=== PATIENT | female | born 1980 | race Caucasian/White ===

== ENCOUNTER 2017-06-10 20:29 | Day surgery (SDC) | payer OTHER ==
[~2017-06-10] VITALS: Ht 152.4 cm; Wt 94.3 kg
--- NOTE | ~2017-06-10 | OR ---
PATIENT'S NAME: ISABEL MONK [facility] AGE: 36 Y [address] ROOM: [place] [address] [place] [facility] [place] DATE: 06/10/2017 OR/Procedure Report DISCHARGE DATE: FAMILY PHYSICIAN: Brad Perea MD ATTENDING PHYSICIAN: Suleman Sorensen SURGEON: Suleman Sorensen MD LEARNING DISABILITIES RESOURCE TEACHER: DATE OF PROCEDURE: 06/10/2017 PREOPERATIVE DIAGNOSIS: Acute abdominal pain, possible appendicitis. POSTOPERATIVE DIAGNOSIS: Ruptured ovarian cyst. PROCEDURES PERFORMED: 1. Laparoscopic appendectomy. 2. Excision of ovarian cyst wall. FINDINGS: On entering the abdomen, there was blood in the abdomen. A ruptured ovarian cyst was encountered that was adherent to the right lower quadrant. This was felt to be her pain, but with the appendix being generous and this potentially causing a future diagnostic dilemma, appendix was also excised. ESTIMATED BLOOD LOSS: 75 mL. COMPLICATIONS: None. INDICATIONS: The patient is a 36-year-old female who presented with right lower quadrant pain worsening in nature. She had focal pain and signs concerning for appendicitis. She had a CT scan that revealed a dilated appendix with possible early appendicitis. We discussed observation versus exploration and appendectomy with the patient; the risks, benefits, and alternatives; potential findings; and she wished to proceed. DESCRIPTION OF PROCEDURE: The patient was taken into the operating room. She was supine given IV sedation. Her abdomen was prepped with ChloraPrep and sterilely draped. Local anesthetic was infiltrated just inferior to the umbilicus. A transverse incision was created. The abdomen was elevated. A Veress needle was inserted. Pneumoperitoneum was induced. Following this, a 5 mm trocar was inserted followed by insertion of the camera. There was no injury from initial trocar placement. There was noted to be hemorrhagic fluid in the pelvis and right lower quadrant. Two more trocars were positioned, a 5 mm suprapubic and a 12 mm left lower quadrant port. Skin overlying the peritoneum was first anesthetized prior to making these incisions. Both of these trocars were inserted under direct visualization. The right lower PATIENT'S NAME: ISABEL MONK [facility] AGE: 36 Y [address] ROOM: [place] [address] LOCATION: [facility] [place] DATE: 06/10/2017 OR/Procedure Report DISCHARGE DATE: FAMILY PHYSICIAN: Brad Perea MD ATTENDING PHYSICIAN: Suleman Sorensen quadrant was attended to, a ruptured ovarian cyst was present. This was adherent in the right lower quadrant. There was hematoma surrounding this with a small amount of bleeding present. This was felt to be the source of her pain. The cyst wall was excised to control bleeding, this was sent for pathologic evaluation. We turned our attention to the appendix. As by CT scan, this was mildly dilated. The appendix was generous, however, no gross signs of appendicitis were present; but with the slight abnormality by CT scan and concerns for future diagnostic dilemmas, we ultimately elected to remove the appendix. A window was created at the base of the appendix. A laparoscopic stapler was placed, fired across the base of the appendix. A second staple load was placed across the mesoappendix and fired. The appendix was placed in an EndoCatch bag. The bag brought out through the left lower quadrant port site. The operative field was then inspected, it was copiously irrigated. Hemostasis was checked and had been obtained. A laparoscopic suture passer was placed to close the 12 mm trocar site. The pneumoperitoneum was released. The trocars were all removed. The skin edges of all the trocar sites were closed with 4-0 Monocryl suture. Steri-Strips and sterile dressings were placed. The patient was extubated and sent to recovery in good condition. SULEMAN SORENSEN MD BJO/modl /[id number] d: 06/11/17 0200 t: 06/19/17 0857, OPERATIVE SUMMARY
--- NOTE | ~2017-06-10 | HP ---
PATIENT'S NAME: YASEMIN MONK [facility] AGE: 36 Y [address] ROOM: [place] [address] [place] [facility] [place] DATE: 06/10/2017 History & Physical DISCHARGE DATE: FAMILY PHYSICIAN: Brad Perea MD ATTENDING PHYSICIAN: Suleman Sorensen DATE OF SERVICE: CHIEF COMPLAINT: Abdominal pain. HISTORY OF PRESENT ILLNESS: The patient is a 36-year-old female who was awoke in the middle of the night with abdominal pain. She described this in the right lower quadrant. She said she had difficulty sleeping after that. Said that whenever she would roll over, her right side would hurt. She had been anorexic all day. Had tried to eat a little bit, but just was not hungry. She had no nausea or vomiting. She did have a bout of loose stool. Her pain continued to persist, was worse when moving, best when lying still. She described pain on the bumps while driving to the hospital for her CT scan. She was evaluated by Dr. Lelo Beyer today and there were concerns with peritoneal signs and appendicitis. Because of that, a CT was performed. CT revealed mildly dilated appendix, this was fluid filled, minimal inflammatory changes surrounding this, although the wall was slightly thickened, could represent early appendicitis. Because of her severe pain in the right lower quadrant, I was asked to see the patient. The patient states that she has never had pain similar to this in the past. She has had no previous ovarian cysts. No significant history of constipation or colitis. CURRENT MEDICATIONS: An antidepressant. ALLERGIES: BACTRIM. SOCIAL HISTORY: Nonsmoker. Has 2 children. PREVIOUS SURGERIES: Cholecystectomy, left elbow, and section x2. REVIEW OF SYSTEMS: She is currently having a headache, but does not typically have headaches, although she said she did not even feel like drinking caffeine today and normally she drinks a significant amount. Denies any asthma. No shortness of PATIENT'S NAME: YASEMIN MONK [facility] AGE: 36 Y [address] ROOM: [place] [address] LOCATION: [facility] [place] DATE: 06/10/2017 History & Physical DISCHARGE DATE: FAMILY PHYSICIAN: Brad Perea MD ATTENDING PHYSICIAN: Suleman Sorensen breath. No chest pain. No melena or hematochezia. No hematuria or dysuria. No history of kidney stones. PHYSICAL EXAMINATION: HEENT: Head is normocephalic and atraumatic. Eyes are anicteric. NECK: Without lymphadenopathy. HEART: Regular rate and rhythm. No murmurs audible. LUNGS: Clear to auscultation bilaterally. ABDOMEN: Obese. She does have point tenderness in the right lower quadrant, demonstrates voluntary guarding. Rovsing sign is positive. EXTREMITIES: Straight leg sign is also positive. Extremities are warm. No edema. ASSESSMENT: Right lower quadrant pain. PLAN: Discussed the findings with Yasemin. No hydroureter was visualized or evidence of kidney stone. She has noticed no hematuria. No history of kidney stones and this was not colicky pain. Her pain has been persistent and getting worse in the right lower quadrant. Despite having minimal CT findings, I did offer her surgical intervention. We discussed observation and antibiotic therapy as well. We discussed risks of each of these. Risks of surgery, which include bleeding, infection, abscess formation, and staple line leak. We also discussed the possibility of having a normal appendix. At this point in time with severity of her pain, she does not wish to wait longer, and clinically she is worse than her CT scan would suggest. I did discuss with her the possibility of no improvement even after surgery and then further diagnosis would have to be made. MD DALTON MAYO/shimon /[id number] D: T: [id number] HISTORY & PHYSICAL
--- NOTE | 2017-06-11 03:45 | NUR ---
ADMISSION: POST-OP APPY AND RUPTURED OVARIAN CYST REMOVAL. Q4 VITALS, STABLE. NORCO OR PERCOCET Q4H FOR PAIN, LAST GIVEN PERCOCET @ 2343 AND NORCO AT 0400. 3 LAP SITES, MID LOWER ABD, MID UPPER ABD AND L) LOWER ABD. C/D/I. IV L) HAND WITH LR @100ML/HR. CAN SALINE LOCK WHEN TOLERATING CLEAR LIQUIDS WELL. WALKED X1 DOWN THE JARA. STANDBY ASSIST. VOIDED X3, OVER 300.
[2017-06-11] MEDS ORDERED: PERCOCET [ROXIC1 TAB PO (07:57)
--- NOTE | 2017-06-11 09:30 | NUR ---
DISMISSED PER W/C TO FRONT DOOR FOR DISMISSAL ACCOMP.BY & NURSE. DISCHARGE INSTRUCTIONS WERE DONE EARLIER & HANDOUTS GIVEN.
== END 2017-06-11 09:45 | disposition disaster alternative care site (69) ==
LOC: GMSU 20:29 → GSDC 20:29
PROC: 0UB04ZZ Excision of Right Ovary, Percutaneous Endoscopic Approach (ICD-10-PCS; principal; 2017-06-10)
PROC: 0DTJ4ZZ Resection of Appendix, Percutaneous Endoscopic Approach (ICD-10-PCS; 2017-06-10)
DX: N83.11 Corpus luteum cyst of right ovary (principal); K38.9 Disease of appendix, unspecified; Z88.1 Allergy status to other antibiotic agents; Z90.49 Acquired absence of other specified parts of digestive tract; Z98.890 Other specified postprocedural states
CPT/HCPCS: J1335; J2270; J3010; J7120; Q9967